=== PATIENT | female | born 1970 | race Caucasian/White ===

== ENCOUNTER 2019-11-08 10:42 | Emergency (ER) | payer MEDICARE, MEDICAID ==
[~2019-11-08] VITALS: Ht 160 cm; Wt 100.0 kg
[2019-11-08 11:02] VITALS: Ht 160 cm; Wt 100.0 kg
[2019-11-08] MEDS ORDERED: ABILIFY2 MG PO ×2 (11:05→11:10)
[2019-11-08] MEDS ORDERED: PEPCID AC20 MG PO ×2 (11:05→11:11)
[2019-11-08] MEDS ORDERED: ERENUMAB ×2 (11:05→11:10)
[2019-11-08] MEDS ORDERED: ATIVAN1 MG PO ×3 (11:06→15:41)
[2019-11-08] MEDS ORDERED: VISTARIL50 MG PO ×2 (11:06→11:11)
[2019-11-08] MEDS ORDERED: LINZESS290 MCG PO ×2 (11:06→11:12)
[2019-11-08] MEDS ORDERED: MORPHINE SULFAT30 M4 PO ×2 (11:07→11:12)
[2019-11-08] MEDS ORDERED: MOBIC7.5 MG PO ×2 (11:07→11:12)
[2019-11-08] MEDS ORDERED: ZOFRAN8 MG PO ×2 (11:07→11:13)
[2019-11-08] MEDS ORDERED: ZANAFLEX4 MG PO ×2 (11:08→11:13)
[2019-11-08] MEDS ORDERED: ZOLOFT100 MG PO ×2 (11:08→11:13)
[2019-11-08] MEDS ORDERED: CRESTOR20 MG PO ×2 (11:08→11:13)
[2019-11-08] MEDS ORDERED: IMITREX50 MG PO ×2 (11:08→11:13)
[2019-11-08] MEDS ORDERED: SYNTHROID50 MCG PO (11:11)
[2019-11-08 11:27] LABS: BASOPHILS 0.2 % (0-2); EOSINOPHILS 3.7 % (0-7); HEMATOCRIT 37.4 % (36.0-48.0); HEMOGLOBIN 12.7 g/dL (12-16); LYMPHOCYTES 46.9 % (15-50); MCH 28.6 pg (26.0-34.0); MCV 84.2 fL (80.0-100.0); MEAN PLATELET VOLUME 9.6 fL (7.4-10.4); MONOCYTES 11.8 % (2-11); NEUTROPHILS 37.4 % (40-80); RBC 4.44 10x6/uL (4.00-5.40); WBC 5.2 10x3/uL (4.8-10.8)
[2019-11-08 11:29] LABS: ANION GAP 14.1 mmol/L (8-16); CALCIUM 9.2 mg/dL (8.5-10.1); POTASSIUM - SERUM 4.1 mmol/L (3.5-5.1)
[2019-11-08 11:36] LABS: ALBUMIN 3.8 g/dL (3.4-5.0); BILIRUBIN - TOTAL 0.35 mg/dL (0.2-1.3); PROTEIN - SERUM 7.3 g/dL (6.4-8.2)
[2019-11-08 11:43] LABS: PLATELET COUNT 192 10x3/uL (130-400)
[2019-11-08 14:58] LABS: BACTERIA MODERATE /hpf (NEGATIVE); BILIRUBIN NEGATIVE (NEGATIVE); EPITHELIAL CELLS OCC /hpf (0-5); GLUCOSE NEGATIVE (NEGATIVE); KETONE NEGATIVE (NEGATIVE); NITRITE NEGATIVE (NEGATIVE); RED CELLS - URINE NONE SEEN /hpf (0-5); UROBILINOGEN NORMAL (NORMAL); WHITE CELLS - URINE 0-5 /hpf (NEGATIVE)
[2019-11-08 16:01] VITALS: BP 122/72
[2019-11-08 16:08] LABS: UDS - AMPHET NEGATIVE QUAL (NEGATIVE); UDS - BARB NEGATIVE QUAL (NEGATIVE); UDS - BENZO NEGATIVE QUAL (NEGATIVE); UDS - COCAINE NEGATIVE QUAL (NEGATIVE); UDS - OPIATE POSITIVE QUAL (NEGATIVE); UDS - PCP NEGATIVE QUAL (NEGATIVE); UDS - THC NEGATIVE QUAL (NEGATIVE)
== END 2019-11-08 16:18 | disposition home or self-care (01) ==
LOC: D.ER 10:42
PROVIDERS: Emergency Medicine
DX: R56.9 Unspecified convulsions (principal); R51 Headache; E07.9 Disorder of thyroid, unspecified; K21.9 Gastro-esophageal reflux disease without esophagitis

== ENCOUNTER 2019-12-28 20:42 | Inpatient (IN) | payer MEDICARE, MEDICAID ==
[~2019-12-28] VITALS: Ht 160 cm; Wt 112.2 kg
[~2019-12-28 20:42] MED LIST: ABILIFY2 MG PO; ATIVAN1 MG PO; CRESTOR20 MG PO; ERENUMAB; IMITREX50 MG PO; LINZESS290 MCG PO; MOBIC7.5 MG PO; MORPHINE SULFAT30 M4 PO; PEPCID AC20 MG PO; SYNTHROID50 MCG PO; VISTARIL50 MG PO; ZANAFLEX4 MG PO; ZOFRAN8 MG PO; ZOLOFT100 MG PO
--- NOTE | 2019-12-28 20:55 | NUR ---
PT DENIES CP. EDP NOTIFIED.
[2019-12-28 21:11] LABS: BASOPHILS 0.1 % (0-2); EOSINOPHILS 2.3 % (0-7); HEMATOCRIT 38.6 % (36.0-48.0); HEMOGLOBIN 12.7 g/dL (12-16); IMMATURE GRANULOCYTES 0.1 % (0-5); LYMPHOCYTES 53.3 % (15-50); MCH 28.3 pg (26.0-34.0); MCHC 32.9 g/dL (31.0-37.0); MEAN PLATELET VOLUME 10.2 fL (7.4-10.4); MONOCYTES 11.1 % (2-11); NEUTROPHILS 33.1 % (40-80); PLATELET COUNT 185 10x3/uL (130-400); RBC 4.49 10x6/uL (4.00-5.40); RDW 12.1 % (11.5-14.5); WBC 6.8 10x3/uL (4.8-10.8)
[2019-12-28 21:15] LABS: APTT 29.7 SECONDS (22.8-39.4); INR 0.97 (0.85-1.17); PROTIME 12.9 SECONDS (11.6-15.0)
[2019-12-28 21:19] LABS: CALC OSMOLALITY 282 mosm/kg (275-300); CALCIUM 8.8 mg/dL (8.5-10.1); CARBON DIOXIDE 26.4 mmol/L (21.0-32.0); CHLORIDE - SERUM 103 mmol/L (98-107); CREATININE - SERUM 1.3 mg/dL (0.6-1.3); GLUCOSE 125 mg/dL (74-106); POTASSIUM - SERUM 3.4 mmol/L (3.5-5.1); SODIUM 141 mmol/L (136-145); UREA NITROGEN 16 mg/dL (7-18); eGFR NON AFRICAN AMERICAN 46 mL/min (90-120)
[2019-12-28 21:35] LABS: ALBUMIN 3.7 g/dL (3.4-5.0); ALKALINE PHOSPHATASE 68 U/L (30-120); ALT (SGPT) 51 U/L (10-68); CKMB 0.2 U/L (0.0-3.6); CREATINE KINASE 95 UL (21-215); MAGNESIUM - SERUM 1.9 mg/dL (1.8-2.4); PROTEIN - SERUM 7.3 g/dL (6.4-8.2)
[2019-12-28 21:40] LABS: TROPONIN-I < 0.017 ng/mL (0.000-0.060)
[2019-12-28] MEDS ORDERED: PROAIR HFA8.5 G1 INH (22:58)
[2019-12-28] MEDS ORDERED: COLACE100 MG PO (22:59)
[2019-12-28] MEDS ORDERED: HYDROXYZINE HCL50 MG PO (23:01)
[2019-12-28] MEDS ORDERED: RANITIDINE HCL150 M1 PO (23:06)
[2019-12-29] VITALS: BP 156/91
--- NOTE | 2019-12-29 00:05 | NUR ---
HISTORY AND MED REC COMPLETE, DUE TO PTS HISTORY OF SEIZURES SIDE RAILS TO BED PADDED AND SUCTION SET UP AT BED SIDE.
--- NOTE | 2019-12-29 01:15 | NUR ---
CL ANSWERED, PT APPEARS TO BE HAVING SEIZURE, THIS NURSE STAYED WITH PT FOR SAFETY AND CALLED FOR CHARGE NURSE. HOB ELEVATED TO PREVENT ASPIRATION, REPOSITIONED IN BED USING PAD, PT ASSISTED BY LIFTING HER HEAD WHEN BEING PULLED UP, VITALS OBTAINED, VITALS STABLE. CHARGE NURSE CALLED RAPID RESPONSE. RAPID RESPONSE TEAM ARRIVED AND ASSESSED PT, NO POSTICTAL STATE NOTED. ERNESTINE BOND FROM ICU ASKED PT WHAT SHE TAKES FOR HER SEIZURES AT HOME, PT STATED LORAZEPAM, WHEN ASKED WHY SHE ISNT TAKING ANY ANTISEIZURE MEDICATIONS THE PT RESPONDED THAT THE DOCOTORS ARE STUPID AND WILL ONLY GIVEN HER ATIVAN. AFTER BEING ASSESSED BY R.R TEAM AND TILE SHADER NOTIFED, PT WILL REMIAN ON MED 2, SEIZURE PRECAUTIONS IN PLACE, RAILS PADDED, SUCTION SET UP, BED LOW, CL IN REACH.
[2019-12-29 02:31] LABS: BASOPHILS 0.2 % (0-2); EOSINOPHILS 2.1 % (0-7); HEMATOCRIT 35.3 % (36.0-48.0); HEMOGLOBIN 11.7 g/dL (12-16); LYMPHOCYTES 37.6 % (15-50); MCH 28.5 pg (26.0-34.0); MCHC 33.1 g/dL (31.0-37.0); MCV 85.9 fL (80.0-100.0); MEAN PLATELET VOLUME 9.7 fL (7.4-10.4); MONOCYTES 9.9 % (2-11); NEUTROPHILS 50.2 % (40-80); PLATELET COUNT 168 10x3/uL (130-400); RBC 4.11 10x6/uL (4.00-5.40); RDW 12.1 % (11.5-14.5); WBC 5.3 10x3/uL (4.8-10.8)
--- NOTE | 2019-12-29 02:46 | NUR ---
I have reviewed this patient and I concur with the Shift Assessment completed by the Licensed Practical Nurse today this shift.
[2019-12-29 02:55] LABS: ALKALINE PHOSPHATASE 62 U/L (30-120); ALT (SGPT) 44 U/L (10-68); BILIRUBIN - TOTAL 0.29 mg/dL (0.2-1.3); CARBON DIOXIDE 27.9 mmol/L (21.0-32.0); CHLORIDE - SERUM 106 mmol/L (98-107); CKMB 0.8 U/L (0.0-3.6); CREATINE KINASE 101 UL (21-215); POTASSIUM - SERUM 3.8 mmol/L (3.5-5.1); PRO BNP 91 pg/mL (0-125); PROTEIN - SERUM 6.6 g/dL (6.4-8.2); SODIUM 141 mmol/L (136-145)
[2019-12-29 03:04] VITALS: BMI 39.4
[2019-12-29 03:17] LABS: ALBUMIN 3.3 g/dL (3.4-5.0); CALC OSMOLALITY 283 mosm/kg (275-300); CALCIUM 8.7 mg/dL (8.5-10.1); CREATININE - SERUM 1.2 mg/dL (0.6-1.3); GLUCOSE 134 mg/dL (74-106); MAGNESIUM - SERUM 1.9 mg/dL (1.8-2.4); TROPONIN-I < 0.017 ng/mL (0.000-0.060); UREA NITROGEN 14 mg/dL (7-18); eGFR NON AFRICAN AMERICAN 50 mL/min (90-120)
[2019-12-29 04:00] VITALS: BP 150/66
[2019-12-29 04:36] LABS: BILIRUBIN NEGATIVE (NEGATIVE); GLUCOSE NEGATIVE (NEGATIVE); KETONE NEGATIVE (NEGATIVE); NITRITE NEGATIVE (NEGATIVE); UROBILINOGEN NORMAL (NORMAL)
[2019-12-29 05:01] LABS: UDS - AMPHET NEGATIVE QUAL (NEGATIVE); UDS - BARB NEGATIVE QUAL (NEGATIVE); UDS - BENZO NEGATIVE QUAL (NEGATIVE); UDS - COCAINE NEGATIVE QUAL (NEGATIVE); UDS - OPIATE POSITIVE QUAL (NEGATIVE); UDS - PCP NEGATIVE QUAL (NEGATIVE); UDS - THC NEGATIVE QUAL (NEGATIVE)
--- NOTE | 2019-12-29 05:57 | NUR ---
CL ANSWERED, PT IN BED, APPEARS TO BE HAVING A SEIZURE. INFORMED PT THAT I WAS AT HER BED SIDE AND LAID MY HAND ON HER CHEST. TRIED TO CHECK PT FOR INCONTINENCE, WHILE ACTIVELY HAVING INVOLUNTARY MOVEMENTS OF EXTREMITIES, PT THEN STATED " I DID NOT WET THE BED, IM HAVING A SEIZURE" PT ALSO C/O OF PAIN TO HER CHEST, OFFERED PT MORPHINE FOR "CHEST PAIN" MORPHINE 2 MG GIVEN.
--- NOTE | 2019-12-29 07:15 | NUR ---
RECEIVED PT IN BED EYES CLOSED RESP UNLABORED SKIN W/D COLOR WNL NAD NOTED
[2019-12-29 07:54] VITALS: Ht 160 cm; Wt 112.2 kg
[2019-12-29 09:05] LABS: CKMB 0.9 U/L (0.0-3.6); CREATINE KINASE 172 UL (21-215); TROPONIN-I < 0.017 ng/mL (0.000-0.060)
[2019-12-29 09:14] VITALS: BP 154/86
[2019-12-29 12:18] VITALS: BP 136/77
[2019-12-29 15:32] LABS: CKMB 0.9 U/L (0.0-3.6); CREATINE KINASE 128 UL (21-215); TROPONIN-I < 0.017 ng/mL (0.000-0.060)
[2019-12-29 17:15] VITALS: BP 164/69
--- NOTE | 2019-12-29 19:30 | NUR ---
REPORT RECIEVED AND INITIAL ROUNDS COMPLETED. PT RESTING IN BED. ALERT/ORIENTED. CALL LIGHT IN REACH.
[2019-12-29 21:21] VITALS: BP 120/75
--- NOTE | 2019-12-29 22:00 | NUR ---
PT REPORTS HAVING DIARRHEA X 4 EPISODES SINCE LUNCH TODAY. PT THEN GOT UP TO GO TO BATHROOM AND HAD EXPLOSIVE DIARRHEA SHE WALKED TO THE TOILET. CARE PROVIDED/CLEAN LINENS/PERSONAL CARE. HOUSEKEEPING TO ROOM TO CLEAN FLOORS AND BATHROOM. HELD BEDTIME COLACE D/T DIARRHEA AND GAVE MORPHINE/ZOFRAN IV FOR ABDOMINAL PAIN.
[2019-12-30] VITALS: BP 139/62
[2019-12-30 04:49] VITALS: BP 136/71
[2019-12-30 07:09] LABS: BASOPHILS 0.2 % (0-2); EOSINOPHILS 1.1 % (0-7); HEMATOCRIT 36.2 % (36.0-48.0); HEMOGLOBIN 11.8 g/dL (12-16); IMMATURE GRANULOCYTES 0.3 % (0-5); LYMPHOCYTES 35.6 % (15-50); MCH 28.2 pg (26.0-34.0); MCHC 32.6 g/dL (31.0-37.0); MCV 86.6 fL (80.0-100.0); MONOCYTES 9.5 % (2-11); NEUTROPHILS 53.3 % (40-80); RBC 4.18 10x6/uL (4.00-5.40); RDW 12.4 % (11.5-14.5); WBC 6.6 10x3/uL (4.8-10.8)
[2019-12-30 07:11] LABS: PLATELET COUNT 205 10x3/uL (130-400)
[2019-12-30 07:24] LABS: ANION GAP 12.6 mmol/L (8-16); CALCIUM 8.7 mg/dL (8.5-10.1); CARBON DIOXIDE 25.1 mmol/L (21.0-32.0); CREATININE - SERUM 0.9 mg/dL (0.6-1.3); PHOSPHOROUS 4.1 mg/dL (2.5-4.9); POTASSIUM - SERUM 3.7 mmol/L (3.5-5.1)
--- NOTE | 2019-12-30 09:11 | NUR ---
PT AWAKE AND ORIENTED AND ON THE CALL LIGHT WHEN I ENTERED THIS AM. REUQESTS ASSISTANCE THE BATHROOM, PT HARDLY TOUCHED MY HAND TO GET HERSELF OUT, WALKED TO THE BATHROOM AND BACK UNASSISTED. PT THEN HIT CL IN AGAIN, INFROMED TECH THAT SHE HAD A SMALL SEZIURE AND THOUGHT WE SHOULD KNOW. PT SHOWS NO SIGNS OF BEING POSTDICTAL. ADMINISTERED MORNING MEDICATIONS, PT STATES SHE TAKES MORE ZOLOFT THAN WE ARE GIVING HER. WILL CHECK. CALLED BACK INTO ROOM, PT STATES SHE TAKES PO MORPHINE AND SHE IS FRUSTRATED BY NOT RECIEVING ALL THE MEDICATIONS SHE SUPPOSED TO. WILL CHECK MEDRECK AND DISCUSS WITH DR. DYSON. CL IN REACH, SRX2
--- NOTE | 2019-12-30 10:31 | NUR ---
PT CALLED ME FOR ASSISTANCE TO THE BATHROOM. SHE DID NOT EVEN TOUCH ME TO GET OU OF BED. REQUIRES NO PHYSICAL ASSISTNACE, STANDBY ONLY
[2019-12-30 10:44] VITALS: BP 139/75
[2019-12-30 12:59] VITALS: BP 154/89
--- NOTE | 2019-12-30 15:31 | NUR ---
PT AWAKE ALERT AND OREINTED, COMPLAINS OF NEEDING PAIN MEDS D/T CHEST/GENERALIZED PAIN. ADMINSITERED PAIN MED PER MD ORDER. NO OTHER OCMPLAINT OR CONCERNS STATED AT THIS TI ME. CL INR EACH, SRX2.
[2019-12-30 16:00] VITALS: BP 132/79
--- NOTE | 2019-12-30 17:57 | NUR ---
I CONCUR WITH THIS STREET LIGHT CLEANER ASSESSMENT OF THIS PATIENT.
--- NOTE | 2019-12-30 19:50 | NUR ---
REPORT RECIEVED AND INITIAL ROUNDS COMPLETED. ALERT/ORIENTED. IVF NS @ 100ML/HR INFUSING TO RIGHT A/C. NONLABORED RESPIRATIONS ON ROOM AIR. NO C/O PAIN OR DISCOMFORT. TELEMETRY 64/SR. ELECTRICAL STIMULI UNITS X 2. PT CONVERSTING AT LENGTH ABOUT THE FACT THAT SHE NEEDS TO LIVE WITH SOMEONE DUE TO HER MANY HEALTH ISSUES AND SHE APPROACHED HER MOTHER AND HER MOTHER WAS NOT IN AGREEMENT. CPOC.
[2019-12-30 20:00] VITALS: BP 139/70
[2019-12-31] VITALS: BP 136/76
--- NOTE | 2019-12-31 02:57 | NUR ---
ASSISTED UP TO BATHROOM TO VOID. BACK TO BED. REQUESTED IV MORPHINE AND IV ZOFRAN HAS BEEN ADMINISTERED FOR PAIN TO BACK. CPOC.
[2019-12-31 04:00] VITALS: BP 136/72
[2019-12-31 06:54] LABS: BASOPHILS 0.1 % (0-2); EOSINOPHILS 0.8 % (0-7); HEMATOCRIT 34.9 % (36.0-48.0); HEMOGLOBIN 11.1 g/dL (12-16); IMMATURE GRANULOCYTES 0.3 % (0-5); LYMPHOCYTES 42.7 % (15-50); MCH 27.5 pg (26.0-34.0); MCHC 31.8 g/dL (31.0-37.0); MCV 86.6 fL (80.0-100.0); MEAN PLATELET VOLUME 9.8 fL (7.4-10.4); MONOCYTES 9.8 % (2-11); NEUTROPHILS 46.3 % (40-80); PLATELET COUNT 198 10x3/uL (130-400); RBC 4.03 10x6/uL (4.00-5.40); RDW 12.3 % (11.5-14.5); WBC 7.2 10x3/uL (4.8-10.8)
[2019-12-31 07:31] LABS: ANION GAP 12.7 mmol/L (8-16); CALCIUM 8.7 mg/dL (8.5-10.1); CARBON DIOXIDE 24.8 mmol/L (21.0-32.0); CREATININE - SERUM 0.9 mg/dL (0.6-1.3); PHOSPHOROUS 4.3 mg/dL (2.5-4.9); POTASSIUM - SERUM 3.5 mmol/L (3.5-5.1)
[2019-12-31 09:18] VITALS: BP 130/72
--- NOTE | 2019-12-31 09:51 | NUR ---
PT AWAKE AND ORIENTED, HAS HIT CALL LIGHT 4 TIMES SINCE 7 FOR MINIMAL ASSITANCE, MOSTLY TO BATHROOM. REQUIRES NO ASSITANCE TO ACTAULLY GET TO THE BATHROOM. CL IN REACH, SRX.2
[2019-12-31 12:56] VITALS: BP 176/96
--- NOTE | 2019-12-31 14:25 | NUR ---
PT ESCORTED OUT VIA WHEELCHAIR TO POV, SON DRIVING.
--- NOTE | 2019-12-31 19:06 | MORECARE ---
CASE MANAGEMENT DISCHARGE SUMMARY PATIENT: JOSI MCLEAN UNIT: [id number] ADM DATE: 12/28/19 AGE: 49 : [birth year] SEX: F ROOM/BED: D.2119 AUTHOR: LAYO HADDAD PHYSICIAN: REFERRING PHYSICIAN: VINITA ROBLERO MD DATE OF SERVICE: 12/31/19 Discharge Plan Patient Name: JOSI MCLEAN [facility] [facility] 1970 Planned Disposition: Home Anticipated Discharge Date: Discharge Date: 12/31/2019 Expected LOS: Initial Reviewer: [email or web address] Initial Review Date: 12/28/2019 Generated: 12/31/19 8:06 pm Patient Name: JOSI MCLEAN Page [phone] at 1906 All edits/amendments must be made on the electronic document DICTATION DATE: 12/31/191905 PASTEURISER OPERATOR: DENIS 12/31/191905 RPT#: [id number] DC DATE:12/31/19 STATUS: DIS IN [facility] [address] [place] [address] END OF REPORT
--- NOTE | 2019-12-31 19:13 | MORECARE ---
CASE MANAGEMENT DISCHARGE SUMMARY PATIENT: JOSI MCLEAN UNIT: [id number] ADM DATE: 12/28/19 AGE: 49 : [birth year] SEX: F ROOM/BED: D.2945 AUTHOR: CATIE,DOC PHYSICIAN: REFERRING PHYSICIAN: VINITA ROBLERO MD DATE OF SERVICE: 12/31/19 Discharge Plan Patient Name: JOSI MCLEAN Facility: [facility]:[place] : 1970 Planned Disposition: Home Anticipated Discharge Date: Discharge Date: 12/31/2019 Expected LOS: Initial Reviewer: [email or web address] Initial Review Date: 12/28/2019 Generated: 12/31/19 8:13 pm Comments DCP- Discharge Planning Updated by [email or web address]: Eve Lucero on 12/31/19 6:[address] Patient Name: JOSI MCLEAN Admission Status: ER Accout number: [id number] Admission Date: 12-28-2019 : 1970 Admission Diagnosis:SICK SINUS SYNDROME Attending: VINITA PAYAN Current LOS: 3 Anticipated DC Date: Planned Disposition: Home Primary Insurance: [facility] MEDIC[facility] SOLUTIONS Discharge Planning Comments: CM met with patient to complete initial dc planning assessment. CM educated patient on the CM role and verbal consent given by patient to complete assessment. Patient lives at home with family where she is independent with her care. At discharge patient plans to return home and feels this is a safe discharge. CM discussed availability of home health, rehab services, and medical equipment. patient will have family transport her home. Patient denied known discharge needs at this time. d/c IMM signed 12/31/19 CM will continue to follow and will assist as needed with dc plans/needs. Component Design Engineer: Eve Lucero DCPIA - Discharge Planning Initial Assessment Updated by [email or web address]: Eve Lucero on 12/31/19 7:06 pm * Is the patient Alert and Oriented? Yes * PCP MARILU * Pharmacy [facility] * Preadmission Environment Home with Family * ADLs Independent * List name and contact numbers for known caregivers / representatives who currently or will assist patient after discharge: GAMAL MYLES - SON - [phone] [facility] - [phone] * Verbal permission to speak to the caregivers and representatives has been obtained from the patient. Yes * Community resources currently utilized None * Additional services required to return to the preadmission environment? No * Can the patient safely return to the preadmission environment? Yes * Has this patient been hospitalized within the prior 30 days at any hospital? No Coverage Notice Reviewer: [email or web address] Bimal Lucero Notice Issued Date-Time: 12/31/2019 14:00 Notice Type: IM Discharge Notice Notice Delivered To: Patient Relationship to Patient: Self Human Resources Professional Name: Delivery Method: HAND - Hand Delivered Madeline Days: Prior Verbal Notification: Recipient Understood Notice: Yes Recipient Signature: Yes Med Rec Note Co-signed by Attending: Coverage Notice Comment: Last DP export: 12/31/19 6:06 pm Patient Name: JOSI MCLEAN Page [phone] at 1913 All edits/amendments must be made on the electronic document DICTATION DATE: 12/31/191912 OFFENSIVE COORDINATOR: DENIS 12/31/191912 RPT#: [id number] DC DATE:12/31/19 STATUS: DIS IN [facility] [address] [place] [address] END OF REPORT
== END 2019-12-31 14:25 | disposition home or self-care (01) | DRG 310 ==
LOC: D.ER 20:42 → D.M2 21:47
PROVIDERS: Family Medicine; ADMIT Family Medicine Adult Medicine; ATTEND Family Medicine Adult Medicine
DX: I49.5 Sick sinus syndrome (principal); I10 Essential (primary) hypertension; E03.9 Hypothyroidism, unspecified; F32.9 Major depressive disorder, single episode, unspecified; E78.5 Hyperlipidemia, unspecified; G40.909 Epilepsy, unspecified, not intractable, without status epilepticus; G89.4 Chronic pain syndrome

== ENCOUNTER 2020-01-19 15:39 | Inpatient (IN) | payer MEDICARE, MEDICAID ==
[~2020-01-19] VITALS: Ht 160 cm; Wt 120.5 kg
[~2020-01-19 15:39] MED LIST changes: +COLACE100 MG PO; +HYDROXYZINE HCL50 MG PO; +PROAIR HFA8.5 G1 INH; +RANITIDINE HCL150 M1 PO
--- NOTE | 2020-01-19 15:57 | NUR ---
RECEIVED PT FROM ADMISSIONS. PT IS AAO AND UP AD LASHAWN. CALL LIGHT W/I REACH. FALL PRECAUTIONS IN PLACE. QUICKSTART, HISTORY, AND MED REQ COMPLETE. NO S/S OF DISTRESS NOTED. PT DENIES ANY NEEDS AT THIS TIME. WILL CTM.
[2020-01-19 16:38] LABS: BASOPHILS 0.2 % (0-2); EOSINOPHILS 1.6 % (0-7); HEMATOCRIT 39.6 % (36.0-48.0); HEMOGLOBIN 12.9 g/dL (12-16); IMMATURE GRANULOCYTES 0.3 % (0-5); LYMPHOCYTES 41.2 % (15-50); MCH 28.3 pg (26.0-34.0); MCHC 32.6 g/dL (31.0-37.0); MCV 86.8 fL (80.0-100.0); MEAN PLATELET VOLUME 9.9 fL (7.4-10.4); MONOCYTES 11.3 % (2-11); NEUTROPHILS 45.4 % (40-80); PLATELET COUNT 207 10x3/uL (130-400); RBC 4.56 10x6/uL (4.00-5.40); RDW 12.4 % (11.5-14.5); WBC 6.4 10x3/uL (4.8-10.8)
[2020-01-19 17:03] VITALS: BP 124/86
[2020-01-19 17:17] LABS: ALBUMIN 3.9 g/dL (3.4-5.0); ALKALINE PHOSPHATASE 67 U/L (30-120); ALT (SGPT) 8 U/L (10-68); BILIRUBIN - TOTAL 0.45 mg/dL (0.2-1.3); CALC OSMOLALITY 276 mosm/kg (275-300); CALCIUM 8.8 mg/dL (8.5-10.1); CARBON DIOXIDE 26.2 mmol/L (21.0-32.0); CHLORIDE - SERUM 102 mmol/L (98-107); CKMB 0.3 U/L (0.0-3.6); CREATINE KINASE 96 UL (21-215); GLUCOSE 101 mg/dL (74-106); MAGNESIUM - SERUM 1.7 mg/dL (1.8-2.4); POTASSIUM - SERUM 3.9 mmol/L (3.5-5.1); PROTEIN - SERUM 7.1 g/dL (6.4-8.2); SODIUM 139 mmol/L (136-145); UREA NITROGEN 9 mg/dL (7-18)
[2020-01-19 17:47] LABS: CREATININE - SERUM 1.1 mg/dL (0.6-1.3); TROPONIN-I 0.058 ng/mL (0.000-0.060); eGFR NON AFRICAN AMERICAN 56 mL/min (90-120)
[2020-01-19 18:12] VITALS: BMI 47.0
--- NOTE | 2020-01-19 18:28 | NUR ---
ASSESSMENT COMPLETE PT AAOX4 RESP UNLABORED SKIN W/D COLOR WNL DENIES ANY CHEST PAIN AT THIS TIME
--- NOTE | 2020-01-19 19:28 | NUR ---
RECEIVED UP IN BED WITH EYES OPEN AND TV ON. ALERT AND ORIENTED X4. UP AD LASHAWN TO B/R. IV TO RT AC WITH NS AT 50CC/HR. TELEMETRY IN PLACE. DENIES ANY NEEDS AT THIS TIME.
[2020-01-19 20:30] VITALS: BP 129/78
[2020-01-19 22:02] LABS: CKMB 0.8 U/L (0.0-3.6); CREATINE KINASE 117 UL (21-215); TROPONIN-I < 0.017 ng/mL (0.000-0.060)
[2020-01-20 00:30] VITALS: BP 149/79
[2020-01-20 04:30] VITALS: BP 129/79
[2020-01-20 05:25] LABS: BASOPHILS 0.2 % (0-2); EOSINOPHILS 1.6 % (0-7); HEMATOCRIT 36.3 % (36.0-48.0); HEMOGLOBIN 11.6 g/dL (12-16); IMMATURE GRANULOCYTES 0.2 % (0-5); LYMPHOCYTES 43.7 % (15-50); MCH 27.8 pg (26.0-34.0); MCV 87.1 fL (80.0-100.0); MEAN PLATELET VOLUME 9.7 fL (7.4-10.4); MONOCYTES 11.4 % (2-11); NEUTROPHILS 42.9 % (40-80); PLATELET COUNT 181 10x3/uL (130-400); RBC 4.17 10x6/uL (4.00-5.40); RDW 12.3 % (11.5-14.5); WBC 4.9 10x3/uL (4.8-10.8)
[2020-01-20 05:54] LABS: CALC OSMOLALITY 279 mosm/kg (275-300); CALCIUM 8.9 mg/dL (8.5-10.1); CARBON DIOXIDE 29.7 mmol/L (21.0-32.0); CHLORIDE - SERUM 105 mmol/L (98-107); CKMB 0.7 U/L (0.0-3.6); CREATINE KINASE 102 UL (21-215); GLUCOSE 106 mg/dL (74-106); MAGNESIUM - SERUM 1.9 mg/dL (1.8-2.4); PHOSPHOROUS 4.1 mg/dL (2.5-4.9); POTASSIUM - SERUM 3.8 mmol/L (3.5-5.1); SODIUM 141 mmol/L (136-145); UREA NITROGEN 9 mg/dL (7-18); eGFR NON AFRICAN AMERICAN 62 mL/min (90-120)
[2020-01-20 05:59] LABS: TROPONIN-I < 0.017 ng/mL (0.000-0.060)
[2020-01-20 08:29] VITALS: BP 132/78
--- NOTE | 2020-01-20 08:41 | NUR ---
AM MEDS GIVEN AT THIS TIME. PT IN BED, A/O X4, RESP EVEN AND NONLABORED ON RA. RT AC INFUSING NS AT 50CC/HR. PT RATES PAIN 02/06. PT DENIES ANY NEEDS AT THIS TIME. CALL LIGHT IN REACH, NAD NOTED,W ILL CONTNUE TO MONITOR.
[2020-01-20 11:46] VITALS: Ht 160 cm; Wt 120.5 kg
--- NOTE | 2020-01-20 12:39 | NUR ---
2MG OF MORPHINE GIVEN FOR PAIN LEVEL OF 7/10. PT DENIES ANY OTHER NEEDS AT THIS TIME. CALL LIGHT IN REACH, NAD NOTED, WILL CONITNUE TO MONITOR.
[2020-01-20 13:11] LABS: BILIRUBIN NEGATIVE (NEGATIVE); GLUCOSE NEGATIVE (NEGATIVE); KETONE NEGATIVE (NEGATIVE); NITRITE NEGATIVE (NEGATIVE); UROBILINOGEN NORMAL (NORMAL)
[2020-01-20 13:23] LABS: UDS - AMPHET NEGATIVE QUAL (NEGATIVE); UDS - BARB NEGATIVE QUAL (NEGATIVE); UDS - BENZO NEGATIVE QUAL (NEGATIVE); UDS - COCAINE NEGATIVE QUAL (NEGATIVE); UDS - OPIATE POSITIVE QUAL (NEGATIVE); UDS - PCP NEGATIVE QUAL (NEGATIVE); UDS - THC NEGATIVE QUAL (NEGATIVE)
[2020-01-20 13:56] VITALS: BP 118/61
--- NOTE | 2020-01-20 16:36 | NUR ---
2MG OF MORPHINE GIVEN FOR PAIN LEVEL OF 8/10. PT DENIES ANY OTHER NEEDS AT THIS TIME. CALL LIGHT IN REACH, NAD NOTED, WILL CONTINUE TO MONITOR.
[2020-01-20 18:25] VITALS: BP 134/88
--- NOTE | 2020-01-20 19:58 | NUR ---
INITIAL ROUNDS AND ASSESSMENT COMPLETED. NO DISTRESS. CALL LIGHT IN REACH. CPOC
[2020-01-20 20:30] VITALS: BP 151/92
--- NOTE | 2020-01-20 21:00 | NUR ---
BEDTIME MEDS GIVEN. PT C/O PAIN ALL OVER. MEDICATED WITH REQUESTED MORPHINE 2MG SIVP. IVF NS @ 50ML/HR INFUSING TO RIGHT A/C. CPOC.
[2020-01-21 00:30] VITALS: BP 133/74
--- NOTE | 2020-01-21 02:04 | NUR ---
PT RESTING IN BED WITH NO DISTRESS. CALL LIGHT IN REACH. CPOC.
[2020-01-21 04:30] VITALS: BP 128/72
--- NOTE | 2020-01-21 05:33 | NUR ---
AM MEDS GIVEN, PLUS REQUESTED IV MORPHINE FOR PAIN/DISCOMFORT 03/08. MADE COMMENT THAT SHE HAD NOT HAD ANY PAIN MEDS ALL NIGHT. REMINDED PT THAT SHE HAD IV MORPHINE AT BEDTIME MED ROUNDS. IVF INFUSING. CPOC.
[2020-01-21 06:14] LABS: BASOPHILS 0.2 % (0-2); EOSINOPHILS 1.4 % (0-7); HEMATOCRIT 37.1 % (36.0-48.0); LYMPHOCYTES 46.5 % (15-50); MCH 28.2 pg (26.0-34.0); MCHC 32.3 g/dL (31.0-37.0); MCV 87.1 fL (80.0-100.0); MEAN PLATELET VOLUME 10.1 fL (7.4-10.4); MONOCYTES 10.1 % (2-11); NEUTROPHILS 41.8 % (40-80); PLATELET COUNT 215 10x3/uL (130-400); RBC 4.26 10x6/uL (4.00-5.40); RDW 12.7 % (11.5-14.5); WBC 5.7 10x3/uL (4.8-10.8)
[2020-01-21 07:00] LABS: ANION GAP 12.7 mmol/L (8-16); CALCIUM 8.7 mg/dL (8.5-10.1); CREATININE - SERUM 0.9 mg/dL (0.6-1.3); MAGNESIUM - SERUM 1.9 mg/dL (1.8-2.4); PHOSPHOROUS 4.7 mg/dL (2.5-4.9); POTASSIUM - SERUM 3.7 mmol/L (3.5-5.1)
--- NOTE | 2020-01-21 07:59 | NUR ---
650MG OF TYLENOL FOR PAIN LEVEL OF 7/10 TO HEAD. MONITOR SHOWING SR WITH RATE OF 86. PT A/O X4, RESP EVEN AND NONLABORED ON RA. RT AC INFUSING NS AT 50CC/HR. PT DENIES ANY OTHER NEEDS AT THIS TIME. CALL LIGHT IN REACH, NAD NOTED, WILL CONTINUE TO MONITOR.
[2020-01-21 08:48] VITALS: BP 155/96
--- NOTE | 2020-01-21 09:25 | NUR ---
AM MEDS GIVEN AT THIS TIME. ALSO GAVE 2MG OF MORPHINE FOR PAIN LEVEL OF 6/10. PT DENIES ANY OTHER NEEDS AT THIS TIME. CALL LIGHT IN REACH, NAD NOTED, WILL CONTINUE TO MONITOR.
--- NOTE | 2020-01-21 09:56 | EC ---
PATIENT:JOSI MCLEAN DATE OF SERVICE: 01/19/20 SEX: F MEDICAL RECORD: [id number] DATE OF : [birth year] LOCATION:D.M2 D.212 AGE OF PATIENT: 49 ADMISSION DATE: 01/19/20 REFERRING PHYSICIAN: INTERPRETING PHYSICIAN: FERNANDO AKHTAR MD ECHOCARDIOGRAM REPORT ECHO CHARGES 4 ECHO COMPLETE Date: 01/20/20 CLINICAL DIAGNOSIS: CHEST PAIN ECHOCARDIOGRAPHIC MEASUREMENTS (adult normal given) AC root (d.<3.7cm) 3.6 cm LV Septum d (<1.2 cm> 1.3 cm Valve Excursion 2.0 cm LV Septum (systole) 1.5 cm Left Atria (s.<4.0cm> 3.6 cm LVPW d(<1.2cm) 1.6 cm RV (d.<2.3cm) 3.5 cm LVPW (sytole) 1.7 cm LV diastole(<5.6CM) 5.6 cm MV E-F(>70mm/sec) cm LV systole 4.3 cm LVOT Diameter 2.0 cm MV exc.(>10mm) 1.6 cm Est.ejection fraction (50-75%) % DOPPLER: LVIT cm/sec A 69.0 cm/sec E 47.0 cm/sec LA cm/sec RVSP 15 mmHg LVOT 111 cm/sec AOP1/2T m/s Asc. Ao 114 cm/sec RVOT cm/sec RA cm/sec PA 103 cm/sec AV Gradient Peak 5.17 mmHg AV Mean 2.45 mmHg AV Area 3.4 cm MV Gradient Peak 3.17 mmHg MV Mean 1.13 mmHg MV Area cm COMMENTS: Water Softener Servicer And Installer: 2 [place] Mobile Phone Salesperson: 4 Dr. Akhtar TAPE# PACS Pericardial Effusion N DATE OF SERVICE: Left ventricle shows normal LV systolic function to mildly hyperdynamic LV systolic function without wall motion abnormalities, ejection fraction of 55% to 60%. There is evidence of mild left ventricular hypertrophy. Left atrium is normal size, structure and function. Aortic valve is normal structure and function. ECHOCARDIOGRAM REPORT [id number] JOSI MCLEAN Mitral valve shows normal structure and function. Tricuspid valve has normal structure and function. Normal RVSP. Right ventricle is mildly dilated with normal structure and function. Right atrium is normal. Pulmonic valve is normal. IMPRESSION: The patient has evidence of hypertensive heart disease with preserved left ventricular systolic function, evidence of diastolic dysfunction. TRANSINT:[id number] Voice Confirmation ID: [id number] DOCUMENT ID: [id number] FERNANDO AKHTAR MD at 0956 CC: [id number] DICTATION DATE: 01/20/20 1257 FISCAL ANALYST: 01/20/20 1534 ADM IN [place] [id number] [place] [address]
[2020-01-21 12:59] VITALS: BP 147/82
--- NOTE | 2020-01-21 13:58 | NUR ---
2MG OF MORPHINE GIVEN FOR PAIN LEVEL OF 9/10. PT UP TO CHAIR, DENIES ANY OTHER NEEDS AT THIS TIME. CALL LIGHT IN REACH, NAD NOTED,W ILL CONTINUE TO MONITOR.
[2020-01-21 18:04] VITALS: BP 130/71
--- NOTE | 2020-01-21 18:05 | NUR ---
GAVE 2MG OF MORPHINE FOR PAIN LEVEL OF 9/10. ALSO GAVE 4MG OF ZOFRAN FOR PAIN NAUSEA.
[2020-01-21 20:00] VITALS: BP 139/70
--- NOTE | 2020-01-21 20:00 | NUR ---
INITIAL ROUNDS AND ASSESSMENT COMPLETED. IVF INFUSING. NONLABORED RESPIRATIONS ON ROOM AIR. CPOC. CALL LIGHT IN REACH.
--- NOTE | 2020-01-21 20:00 | NUR ---
INITIAL ROUNDS AND ASSESSMENT COMPLETED. NO DISTRESS. NONLABORED RESPIRATIONS. SEE SHIFT ASSESSMENT. CPOC. CALL LIGHT IN REACH.
--- NOTE | 2020-01-21 21:35 | NUR ---
BEDTIME MEDS GIVEN. IV MORPHINE FOR GENERALIZED PAIN.
[2020-01-22 04:00] VITALS: BP 131/77
[2020-01-22 06:54] LABS: BASOPHILS 0.2 % (0-2); EOSINOPHILS 2.2 % (0-7); HEMATOCRIT 36.5 % (36.0-48.0); HEMOGLOBIN 11.8 g/dL (12-16); IMMATURE GRANULOCYTES 0.2 % (0-5); LYMPHOCYTES 39.5 % (15-50); MCHC 32.3 g/dL (31.0-37.0); MCV 86.5 fL (80.0-100.0); MEAN PLATELET VOLUME 10.2 fL (7.4-10.4); MONOCYTES 10.8 % (2-11); NEUTROPHILS 47.1 % (40-80); PLATELET COUNT 210 10x3/uL (130-400); RBC 4.22 10x6/uL (4.00-5.40); RDW 12.5 % (11.5-14.5); WBC 6.3 10x3/uL (4.8-10.8)
[2020-01-22 07:03] LABS: CALC OSMOLALITY 276 mosm/kg (275-300); CALCIUM 8.6 mg/dL (8.5-10.1); CARBON DIOXIDE 28.4 mmol/L (21.0-32.0); CHLORIDE - SERUM 106 mmol/L (98-107); CREATININE - SERUM 0.8 mg/dL (0.6-1.3); GLUCOSE 102 mg/dL (74-106); MAGNESIUM - SERUM 2.1 mg/dL (1.8-2.4); PHOSPHOROUS 4.7 mg/dL (2.5-4.9); POTASSIUM - SERUM 3.7 mmol/L (3.5-5.1); SODIUM 140 mmol/L (136-145); UREA NITROGEN 8 mg/dL (7-18); eGFR NON AFRICAN AMERICAN 80 mL/min (90-120)
--- NOTE | 2020-01-22 09:06 | NUR ---
AM MEDS GIVEN AT THIS TIME. ALSO GAVE 2MG OF MORPHINE FOR PAIN LEVEL OF 7/10. PT NPO UNTIL SEEN BY CARDIOLOGY FOR POSSIBLE PACEMAKER. PT DENIES ANY OTHER NEEDS AT THIS TIME. CALL LIGHT IN REACH, NAD NOTED, WILL CONTINUE TO MONITOR.
[2020-01-22 10:37] VITALS: BP 143/84
--- NOTE | 2020-01-22 11:38 | NUR ---
SHOWER AND COMPLETE LINEN CHANGE AT THIS TIME.
--- NOTE | 2020-01-22 13:05 | NUR ---
OK TO D/C FROM CARDIOLOGY STANDPOINT. F/U WITH HEALTH OUTREACH WORKER.
--- NOTE | 2020-01-22 13:18 | NUR ---
PROVIDED VERBAL AND WRITTEN DISCHARGE TEACHING TO PT WHO VERBALIZED UNDERSTANDING REGARING TEACHING. D/C RT AC IV WITH CATHETER TIP INTACT. HEART MONITOR REMOVED AND TAKEN TO MARK UP DESIGNER. PT WAITING ON RIDE,W ARIANA NOTIFY NURSE WHEN READY FOR WHEELCHAIR.
--- NOTE | 2020-01-22 13:51 | MORECARE ---
CASE MANAGEMENT DISCHARGE SUMMARY PATIENT: JOSI MCLEAN UNIT: [id number] ADM DATE: 01/19/20 AGE: 49 : 68 SEX: F ROOM/BED: D.2549 AUTHOR: CATIE,DOC PHYSICIAN: REFERRING PHYSICIAN: KARLA NORTH MD DATE OF SERVICE: 01/22/20 Discharge Plan Patient Name: JOSI MCLEAN Facility: [facility]:[place] : 1970 Planned Disposition: Home Anticipated Discharge Date: Discharge Date: Expected LOS: 0 Initial Reviewer: [email or web address] Initial Review Date: 01/19/2020 Generated: 01/22/20 2:51 pm Comments DCP- Discharge Planning Updated by [email or web address]: Sendy Esposito on 01/22/20 12:[address] Patient Name: JOSI MCLEAN Admission Status: Urgent Accout number: [id number] Admission Date: 01-19-2020 : 1970 Admission Diagnosis: Attending: KARLA NORTH Current LOS: 3 Anticipated DC Date: Planned Disposition: Home Primary Insurance: [facility] MEDIC[facility] SOLUTIONS CM met with patient to complete initial dc planning assessment. CM educated patient on the CM role and verbal consent given by patient to complete assessment. CM verified patient's address, phone number, and emergency contact phone numbers. Patient lives at home independently. At discharge patient plans to return home and feels this is a safe discharge. CM discussed availability of home health, rehab services, and medical equipment. Patient denied known discharge needs at this time. Transportation provider at discharge will be Jay (son) . DC IMM delivered, explained, signed by the patient, and placed in his chart. Signed form also left with patient. CM will continue to follow and will assist as needed with dc plans/needs. Nurse Transplant: Sendy Esposito MSN,RN,CM Coverage Notice Reviewer: [email or web address] - Sendy Esposito Notice Issued Date-Time: 01/22/2020 13:40 Notice Type: IM Discharge Notice Notice Delivered To: Patient Relationship to Patient: Forest Ecology Professor Name: Delivery Method: HAND - Hand Delivered Madeline Days: Prior Verbal Notification: Recipient Understood Notice: Yes Recipient Signature: Yes Med Rec Note Co-signed by Attending: Coverage Notice Comment: DC IMM delivered, explained, signed by the patient, and placed in his chart. Signed form also left with patient. Patient Name: JOSI MCLEAN Page [phone] at 1351 All edits/amendments must be made on the electronic document DICTATION DATE: 01/22/20 1351 [place]ADEMARK AFFIXER: DENIS 01/22/20 1351 RPT#: [id number] DC DATE: STATUS: ADM IN [facility] [address] [place] [address] END OF REPORT
--- NOTE | 2020-01-22 13:57 | NUR ---
PT LEFT UNIT VIA WHEELCHAIR, WITH ALL BELONGINGS, NAD NOTED.
== END 2020-01-22 13:57 | disposition home or self-care (01) | DRG 310 ==
LOC: D.M2 15:39
PROVIDERS: Family Medicine; ADMIT Internal Medicine Nephrology; ATTEND Internal Medicine Nephrology
DX: I49.5 Sick sinus syndrome (principal); I20.9 Angina pectoris, unspecified; I10 Essential (primary) hypertension; E03.9 Hypothyroidism, unspecified; G89.4 Chronic pain syndrome; M79.7 Fibromyalgia

== ENCOUNTER 2020-01-30 10:59 | Outpatient (CLI) | payer MEDICARE, MEDICAID ==
[~2020-01-30] VITALS: Ht 160 cm; Wt 99.5 kg
--- NOTE | ~2020-01-30 | HEMODYNAMI ---
PATIENT:JOSI MCLEAN MEDICAL RECORD: [id number] : 68 LOCATION:[facility] ADMISSION DATE: 01/30/20 Generatedon:01/30/202014:53 Patient name: JOSI MCELAN Patient #: [id number] SSN: [id number] : 1970 Date of study: 01/30/2020 Page: Of Hemodynamic Procedure Report Patient Data Patient Demographics Procedure consent was obtained First Name: JOSI Gender: Female Last Name: VINAY : 1970 Patient #: [id number] Age: 49 year(s) Race: Unknown SSN: [id number] Additional ID: [id number] Contact details [address]: [address] [place] [address] State: [place] City: [place] Zip code: [address] Past Medical History Allergies Allergen Reaction Date Comments Reported Other allergy 01/30/2020 DEXAMETHASONE Admission Admission Data Admission Date: 01/30/2020 Admission Time: 10:59 Arrival Date: 01/30/2020 Arrival Time: 0:00 Height (in.): 24.8 BSA: 1.03 (m2) Height (cm.): 63 BMI: 257.14 (kg/m2) Weight (lbs.): 225 Weight (kg.): 102.06 Lab Results Lab Result Date: 01/30/2020 Lab Result Time: 0:00 CBC Name Units Result Min Max Hematocrit % 38.9 *-(----)-- 42 54 Hemoglobin g/dl 12.5 *-(----)-- 13.5 17.5 Procedure Procedure Types Cath Procedure Diagnostic Procedure PPM/ICD PPM Dual Implant Sedation Charges Moderate Sedation up to 30 minutes Procedure Description Procedure Date Procedure Date: 01/30/2020 Procedure Start Time: 14:19 Procedure End Time: 14:51 Procedure Staff Name Function Grabiel Davison MD Performing Physician Janet Khan RT Monitor Lyudmila Andrews RN Nurse Van Sood MD Assisting physician Purnima Montilla RT Scrub Indication Sick Sinus Syndrome Procedure Data Cath Procedure Fluoroscopy Diagnostic fluoroscopy Total fluoroscopy Time: 1.8 time: 1.8 min min Diagnostic fluoroscopy Total fluoroscopy dose: dose: 1126.17 mGy 1126.17 mGy Estimated blood loss: 10 ml Procedure Complications No complications Procedure Medications Medication Administration Route Dosage 0.9% NaCl I.V. 100 ml/hr Oxygen etCO2 Nasal cannula 2 l/min Lidocaine 1% added to field 20 Ancef (1Gm/50ml NS) I.V.P.B 1 g Ancef Irrigation Topical 1 g (1gm/500ml NS) Versed Fentanyl I.V. 50 mcg Versed I.V. 2 mg Fentanyl I.V. 50 mcg Versed I.V. 2 mg Fentanyl I.V. 50 mcg Versed I.V. 1 mg Fentanyl I.V. 50 mcg Hemodynamics Rest BSA: 1.03 (m2) HGB: 12.5 (g/dl) O2 Consumption: Estimated: 94.7 (ml/min) O2 Cons umption indexed: Estimated:91.94 (ml/min/m) Heart Rate: 54 (bpm) Snapshots Pre Cath Intra NCS Post Cath Vital Signs Time Heart Resp SPO2 etCO2 NIBP (mmHg) Rhythm Pain Status Sedation Rate (ipm) (%) (mmHg) Level (bpm) 13:39:18 56 13 99 40.7 127/84(107) SB 0 (11) , No 10(A) pain 13:43:38 56 16 98 30.1 138/56(60) SB 0 (11) , No 10(A) pain 13:47:46 52 15 98 42.1 122/75(96) SB 0 (11) , No 10(A) pain 13:51:58 50 10 98 42.8 122/69(80) SB 0 (11) , No 10(A) pain 13:56:10 51 11 97 43.6 129/74(95) SB 0 (11) , No 10(A) pain 14:01:09 55 22 100 32.3 Measuring SB 0 (11) , No 10(A) pain 14:01:19 58 21 100 27 127/74(103) SB 0 (11) , No 10(A) pain 14:05:37 54 12 100 39.1 112/63(87) SB 0 (11) , No 10(A) pain 14:09:47 53 10 100 38.3 109/66(80) SB 0 (11) , No 10(A) pain 14:13:57 52 10 100 39.1 113/67(80) SB 0 (11) , No 10(A) pain 14:18:56 52 17 99 39.8 Measuring SB 0 (11) , No 10(A) pain 14:19:08 51 10 99 39.8 126/73(96) SB 0 (11) , No 10(A) pain 14:23:25 54 13 100 42.9 111/69(82) SB 5 (11) , 10(A) Very distressing 14:28:23 55 15 94 38.3 Measuring SB 5 (11) , 10(A) Very distressing 14:28:58 53 10 96 39.1 93/55(71) SB 5 (11) , 10(A) Very distressing 14:33:00 54 17 98 42.1 91/71(81) SB 5 (11) , 10(A) Very distressing 14:36:56 79 18 96 41.3 102/83(92) Paced 5 (11) , 10(A) Very distressing 14:41:55 89 18 97 46.6 Measuring Paced 0 (11) , No 10(A) pain 14:41:57 89 19 98 46.6 112/60(90) Paced 0 (11) , No 10(A) pain 14:46:09 60 17 97 45.1 101/48(75) Paced 0 (11) , No 10(A) pain 14:50:16 60 10 91 46.6 110/63(91) Paced 0 (11) , No 10(A) pain Medications Time Medication Route Dose Verified Delivered Reason Notes Effectiv eness by by 13:45:11 0.9% NaCl I.V. 100 Grabiel Lyudmila used for ml/hr Laney Darryl procedure MD SINHA 13:45:18 Oxygen etCO2 2 Grabiel Lyudmila used for Nasal l/min Lane[facility] Darryl procedure cannula MD SINHA 13:45:31 Lidocaine added 20ml Grabiel Fernandeza for local 1% to vial Laney Darryl anesthetic field x 2 MD SINHA 13:45:52 Ancef I.V.P.B 1 g Grabiel Lyudmila used for (1Gm/50ml Laney Darryl procedure NS) MD SINHA 13:46:00 Ancef Topical 1 g Grabiel Lyudmila used for Irrigation [place] Darryl procedure (1gm/500ml MD SINHA NS) 14:17:05 Versed Grabiel Lyudmila Fully aw mello @ [facility] Darryl 14:25:27 MD SINHA 14:17:11 Fentanyl I.V. 50 Grabiel Lyudmila for Fully aw mello @ [facility] sedation 14:25:29 RN 14:21:19 Versed I.V. 2 mg Grabiel Lyudmila for Fully aw mello @ [facility] sedation 14:25:33 RN 14:21:20 Fentanyl I.V. 50 Grabiel Lyudmila [facility] MD SINHA 14:25:09 Versed I.V. 2 mg Grabiel Lyudmila for Fully aw mello @ [facility] sedation 14:30:01 MD SINHA 14:25:12 Fentanyl I.V. 50 Grabiel Lyudmila for Fully aw mello @ [facility] sedation 14:29:51 MD SINHA 14:29:06 Versed I.V. 1 mg Grabiel Lyudmila for [facility] sedation MD SINHA 14:29:15 Fentanyl I.V. 50 Grabiel Lyudmila for [facility] sedation MD SINHAhouse superintendent Log Time Note 13:13:28 Informed consent obtained and on chart 13:15:04 Indication : Sick Sinus Syndrome 13:15:18 Arrival Date: 01/30/2020 12:00:00 AM 13:15:31 Patient Height : 24.8 inches 13:15:42 Patient Weight : 225 lbs 13:16:57 Procedure Status PPM/ Gen Change/ Lead Revision/ Temp. 13:17:04 Time tracking: Regular hours (M-F 7:00 - 5:00) 13:22:23 [employer] insurance service representative KIN PATRICIA present for procedure. 13:23:45 Purnima Montilla RT(R) sent for patient. Start room use. 13:23:56 Plan of Care:Hemodynamics will remain stable., Cardiac rhythm will remain stable., Comfort level will be maintained., Respiratory function will remain adequate., Patient/ family verbilizes understanding of procedure., Procedure tolerated without complication., Recovers from procedure without complications.. 13:28:31 Patient received from Pre/Post Procedure Room to [facility] 3 Alert and oriented. Tansferred to table in Supine position. 13:28:34 Warm blankets applied, and patricia hugger turned on for patient comfort. 13:28:35 Correct patient and procedure confirmed by team. 13:28:36 ECG and BP/O2 sat monitors applied to patient. 13:38:22 Vital chart was started 13:38:24 Baseline sample Acquired. 13:38:59 Rhythm: sinus rhythm 13:39:02 Full Disclosure recording started 13:39:03 - 13:39:10 H&P Date Dictated: 01/30/2020 H&P Addendum completed by physician on day of procedure. (MUST COMPLETE FOR ALL OUTPATIENTS), New H&P dictated by physician.. 13:39:12 Pre-procedure instructions explained to patient. 13:39:13 Pre-op teaching completed and patient verbalized understanding. 13:39:16 Family in patients room. 13:39:18 Patient NPO since Midnight. 13:45:11 0.9% NaCl 100 ml/hr I.V. was administered by Lyudmila Andrews RN; used for procedure; Verbal order read back and verified. 13:45:18 Oxygen 2 l/min etCO2 Nasal cannula was administered by Lyudmila Andrews RN ; used for procedure; Verbal order read back and verified. 13:45:31 Lidocaine 1% 20ml vial x 2 added to field was administered by Lyudmila Andrews RN; for local anesthetic; Verbal order read back and verified. 13:45:52 Ancef (1Gm/50ml NS) 1 g I.V.P.B was administered by Lyudmila Andrews RN; used for procedure; Verbal order read back and verified. 13:46:00 Ancef Irrigation (1gm/500ml NS) 1 g Topical was administered by Lyudmila Andrews RN; used for procedure; Verbal order read back and verified. 13:47:11 Patient allergic to Other allergyDEXAMETHASONE 13:48:51 Was the patient premedicated? Yes 13:49:00 Is patient on blood thinner?No 13:49:03 Patient diabetic? No. 13:49:06 ----Pre-sedation anethsthesia assessment.---- 13:49:47 Previous problem with sedation/anesthesia? No ? 13:49:50 Snore? Yes 13:49:56 Snore? Yes 13:49:59 Sleep apnea? No 13:50:10 Deviated septum? Unknown 13:50:13 Opens mouth fully? Yes 13:50:18 Sticks out tongue? Yes 13:50:42 Airway obstruction? No ? 13:50:46 Dentures? No ? 13:51:13 IV patent on arrival in right antecubital with 0.9% NaCl at [facility]. 13:51:28 Left chest area was prepped with chlora-prep and draped in sterile fashion 13:51:31 Alarms reviewed by R. N. 13:51:31 Sharps counted by scrub and verified by R.N. 13:51:37 Physician paged 13:52:04 Lab Result : Hemoglobin 12.5 g/dl 13:52:04 Lab Result : Hematocrit 38.9 % 13:52:16 Use device set KEVIN PPM 13:52:18 2-0 Ticron Multipack ([id number]) opened to sterile field. 13:52:19 3-0 Vicryl Single Pack [id number] opened to sterile field. 13:52:20 5-0 Monocryl PS2 [id number] opened to sterile field. 13:52:21 Cautery Tip Homemaker Companion opened to sterile field. 13:52:22 Cautery Pushbutton Pencil opened to sterile field. 13:52:23 Mepilex Dressing ([id number]) opened to sterile field. 13:52:52 Medtronic 4074-52 PPM Lead opened to sterile field. 13:52:56 Medtronic 4574-45 PPM Lead opened to sterile field. 13:53:[address] Generator [id number] opened to sterile field. 13:53:43 Immobilizer Large opened to sterile field. 13:54:17 Pre sharps counted by scrub and verified by RN: Sutures: 7; Sponges: 5; Stick needles: 2; Skin needles: 2; Blade: 1; Cautery: 1 13:54:28 Grounding pad site Left thigh. 13:54:32 Grounding pad site free from injury. 14:02:01 Physician responded to page. 14:16:06 Physician arrived 14:16:08 --------ALL STOP TIME OUT------ 14:16:09 Final Timeout: patient, procedure, and site verified with staff and physician. All members of the team are in agreement. 14:16:15 Left chest site verified by team. 14:16:31 Fire Safety Assessment: A--An alcohol-based skin anteseptic being used preoperatively., B--The operative or invasive procedure is being performed above the xiphoid process or in the oropharynx., C--Open oxygen or nitrous oxide is being used., E--There are other possible contributors. 14:16:38 Physical assessment completed. ASA score P 1 - A normal healthy patient as per Grabiel Davison MD. 14:16:48 Sedation plan: IV Moderate Sedation Medication:Versed, Fentanyl 14:17:05 Versed was administered by Lyudmila Andrews RN; ; Verbal order read back and verified. 14:17:11 Fentanyl 50 mcg I.V. was administered by Lyudmila Andrews RN; for sedation ; Verbal order read back and verified. 14:19:43 Procedure started. 14:19:52 Lidocaine 1% was administered to left subclavicular area by Van johnson MD . 14:20:28 Incision made to left subclavicular area. 14:21:19 Versed 2 mg I.V. was administered by Lyudmila Andrews RN; for sedation; Verbal order read back and verified. 14:21:20 Fentanyl 50 mcg I.V. was administered by Lyudmila Andrews RN; for sedation ; Verbal order read back and verified. 14:22:44 Generator pocket made/opened. 14:25:03 Left subclavian vein accessed with 7Fr Peel Away Sheath. 14:25:09 Versed 2 mg I.V. was administered by Lyudmila Andrews RN; for sedation; Verbal order read back and verified. 14:25:12 Fentanyl 50 mcg I.V. was administered by Lyudmila Andrews RN; for sedation ; Verbal order read back and verified. 14:25:27 Effectiveness of Versed delivered @ 14:17:05 is: Fully awake 14:25:29 Effectiveness of Fentanyl delivered @ 14:17:11 is: Fully awake 14:25:33 Effectiveness of Versed delivered @ 14:21:19 is: Fully awake 14:25:58 Left subclavian vein accessed with 7Fr Peel Away Sheath. 14:27:28 Ventricular lead inserted and advanced. 14:27:32 Atrial lead inserted and advanced. 14:29:06 Versed 1 mg I.V. was administered by Lyudmila Andrews RN; for sedation; Verbal order read back and verified. 14::15 Fentanyl 50 mcg I.V. was administered by Lyudmila Andrews RN; for sedation ; Verbal order read back and verified. 14:29:51 Effectiveness of Fentanyl delivered @ 14:25:12 is: Fully awake 14:30:01 Effectiveness of Versed delivered @ 14:25:09 is: Fully awake 14:31:37 Atrial lead positioned. 14:31:43 Atrial lead tested. 14:31:48 Ventricular lead positioned. 14:31:53 Ventricular lead tested. 14:33:03 Peel-a-way sheath was split and removed. 14:33:04 Peel-a-way sheath was split and removed. 14:35:02 PPM Dual was attached to lead(s) and inserted into pocket. 14:35:20 Atrial lead attachment was completed with 2-0 ticron. 14:35:27 Ventricular lead attachment was completed with 2-0 ticron. 14:35:37 PPM Dual was inserted subcutaneously to left chest. 14:37:53 Device pocket was irrigated with Ancef. 14:38:30 Generator was sutured in place with 2-0 ticron. 14:41:19 Subcutaneous closure was completed with 3-0 vicryl plus. 14:41:50 Skin closure was completed with 5-0 monocryl. 14:42:26 Parameters-- Generator: Mode: AAIRDDDR. Lower Rate: 60bpm. Upper Rate: 120bpm. 14:43:26 Parameters--Ventricular P/R Wave: 5.1mV. Current: 0.4mA; Threshold: 0.5V; Impedence: 1350OHMS. 14:44:52 Parameters--Atrial P/R Wave: 2.3mV. Current: 0.4mA; Threshold: 0.2V; Impedence: 514OHMS. 14:46:46 Lt Chest incision was dressed with Mepilex dressing. 14:47:46 Post sharps counted by scrub and verified by RN: Sutures: 7; Sponges: 5 ; Stick needles: 2; Skin needles: 2; Blade: 1; Cautery: 1 14:48:21 Procedure ended.(Physican Out) 14:48:40 Fluoroscopy time 01.80 minutes. 14:48:52 Fluoroscopy dose: 1126.17 mGy 14:48:52 Flurop Dose total: 1126.17 14:49:01 Dose Area Product 1126.17 mGy/cm. 14:49:05 Sharps counted by scrub and verified by R.N. 14:49:19 Post Chest area:stable 14:49:32 Post-procedure physical assessment completed. ASA score P 1 - A normal healthy patient as per Grabiel Davison MD. 14:49:38 Post procedure rhythm: paced 14:49:51 Estimated blood loss: 10 ml 14:49:53 Post procedure instruction explained to patient.Patient verbalizes understanding. 14:49:54 Patient needs reinforcement of post procedure teaching. 14:50:23 Procedure type changed to Cath procedure, Diagnostic procedure, PPM/ICD , PPM Dual Implant, Sedation Charges, Moderate Sedation up to 30 minutes 14:50:26 Procedure and supply charges have been captured, reviewed, submitted an d are correct. 14:51:05 Procedure Complication : No complications 14:51:09 Vital chart was stopped 14:51:15 Operative report dictated upon procedure completion. 14:51:16 See physician's report for complete and final results. 14:51:19 Report given to Pre/Post Procedure Room. 14:51:24 Patient transfered to Pre/Post Procedure Room with Stretcher. 14:51:27 Procedure ended. 14:51:27 Full Disclosure recording stopped 14:51:30 End room use (Document Last) Device Usage Item Name Manufacture Quantity Catalog Hospital Part Current Minima l Lot# / Number Charge Number Stock Stock Serial# Code 2-0 Ticron Ethicon 0 [id number] 512011 19798 [id number] 5 Multipack ([id number]) 3-0 Vicryl Ethicon 1 [id number] 105677 093136 569658 5 Single Pack [id number] 5-0 Monocryl Ethicon 1 Y495G 023334 018530 929434 5 PS2 Y495G Cautery Tip Microtek 1 [id number] 924584 200086 438389 5 [employer] Cautery Microtek 1 [id number] 270109 13588 582257 5 Pushbutton [employer] Pencil Mepilex Cardinal 1 [id number] 187083 521295 309532 5 Dressing Health ([id number]) Medtronic Medtronic 1 4074-52 162156 291936 135968 5 [id number] 4074-52 PPM 04-25-2020 Lead Medtronic Medtronic 1 4574-45 292454 123341 589529 5 [id number] 4574-45 PPM 08-09-2021 Lead Medtronic Medtronic 1 [id number] 525495 [id number] 198975 5 [id number] CONNOR XT 04-26-2021 Generator [id number] Immobilizer Cardinal 1 [id number] [id number] 000622 [id number] 5 Large [facility] Signature Audit [place] Stage Time Signature Unsigned Intra-Procedure 01/30/2020 Janet 2:51:55 PM Erin RT(R) (CV) Intra-Procedure 01/30/2020 Lyudmila Andrews 2:52:50 PM RN Intra-Procedure 01/30/2020 Grabiel Garcia 2:53:19 PM [id number] [place] [address]
[2020-01-30] MEDS ORDERED: LEVOTHYROXINE75 MCG PO (11:22)
[2020-01-30] MEDS ORDERED: BACLOFEN10 MG PO (11:25)
[2020-01-30] MEDS ORDERED: SUMATRIPTAN SUC25 MG PO (11:25)
[2020-01-30] MEDS ORDERED: HYDROXYZINE HCL50 MG PO (11:26)
[2020-01-30 11:44] VITALS: BP 120/75; Ht 160 cm; Wt 99.5 kg
[2020-01-30 13:13] LABS: HEMATOCRIT 38.9 % (36.0-48.0); HEMOGLOBIN 12.5 g/dL (12-16); MCH 28.1 pg (26.0-34.0); MCHC 32.1 g/dL (31.0-37.0); MCV 87.4 fL (80.0-100.0); MEAN PLATELET VOLUME 10.5 fL (7.4-10.4); RBC 4.45 10x6/uL (4.00-5.40); RDW 12.4 % (11.5-14.5); WBC 5.2 10x3/uL (4.8-10.8)
[2020-01-30 13:29] LABS: ANION GAP 10.1 mmol/L (8-16); CALCIUM 9.2 mg/dL (8.5-10.1); CARBON DIOXIDE 29.8 mmol/L (21.0-32.0); POTASSIUM - SERUM 3.9 mmol/L (3.5-5.1)
[2020-01-30 13:41] LABS: APTT 29.8 SECONDS (22.8-39.4); INR 0.98 (0.85-1.17)
--- NOTE | 2020-01-30 14:55 | NUR ---
PATIENT ARRIVED TO ROOM 5 AFTER PROCEDURE, VSS ON ROOM AIR. LEFT CHEST DRESSING IS CDI, NO S/S OF BLEEDING OR HEMATOMA. NO C/O PAIN, NUMBNESS, OR TINGLING.
--- NOTE | 2020-01-30 15:10 | NUR ---
PATIENT INTERMITTENTLY RESTING. VSS ON ROOM AIR. LEFT CHEST DRESSING IS CDI, NO S/S OF BLEEDING OR SWELLING. NO C/O PAIN, NUMBNESS, OR TINGLING. NO N/V. PATIENT TOLERATING PO FLUIDS.
--- NOTE | 2020-01-30 15:40 | NUR ---
PATIENT AWAKE, GIVEN HAMLET CRACKERS AND PUDDING PER REQUEST, NO N/V. VSS ON ROOM AIR. LEFT CHEST DRESSING IS CDI, NO S/S OF BLEEDING OR HEMATOMA. NO C/O PAIN, NUMBNESS, OR TINGLING. SON PRESENT AT BEDSIDE.
--- NOTE | 2020-01-30 16:10 | NUR ---
PATIENT AWAKE, RESTING IN BED, HEAD OF BED ELEVATED AT 70 DEGREES. LEFT CHEST DRESSING IS CDI, NO S/S OF BLEEDING OR HEMATOMA. NO C/O PAIN, NUMBNESS, OR TINGLING. NO N/V. SON PRESENT AT BEDSIDE.
--- NOTE | 2020-01-30 16:40 | NUR ---
WRITTEN AND VERBAL DISHCARGE EDUCATION AND MEDICATION INSTRUCTIONS GIVEN TO PATIENT AND SON, BOTH VOICE UNDERSTANDING. VSS ON ROOM AIR. LEFT CHEST DRESSING IS CDI, NO S/S OF BLEEDING OR SWELLING. NO C/O PAIN, NUMBNESS, OR TINGLING. NO N/V. SKIN IS WARM AND PINK.
--- NOTE | 2020-01-30 17:05 | NUR ---
PATIENT DISCONNECTED FROM MONITORS TO GET DRESSED. PERIPHERAL IV REMOVED WITH CATHLON INTACT. PATIENT TRANSPORTED VIA WHEELCHAIR TO CAR WITH SON DRIVING, ALL BELONGINGS WITH PATIENT.
--- NOTE | 2020-01-31 11:14 | OP ---
PATIENT NAME: SHAYLA PARIKH MEDICAL RECORD: [id number] :68 LOCATION:D.CAT ADMISSION DATE: SURGEON: TAMI RAMIREZ MD DATE OF OPERATION: 01/30/2020 SURGEON: Van Sood MD (JJ) INDICATION: Sick sinus syndrome with antoni escape rhythms with the rates down the 28. DESCRIPTION OF PROCEDURE: After the left subclavian was cannulated via modified Seldinger technique via Dr. Sood, first under fluoroscopic guidance, I placed the RV lead in the RV apex without difficulty. After adequate thresholds and R waves were obtained, I then passed the right atrial lead in the right atrial appendage without difficulty. After adequate P waves and thresholds were obtained, the leads were attached to appropriate poles of the generator and the pocket was closed via Dr. Sood. IMPRESSION: Successful lead portion of permanent pacemaker placement on Shayla Parikh. ESTIMATED BLOOD LOSS: Minimal. COMPLICATIONS: None. DISPOSITION: To the floor, stable. TRANSINT:[id number] Voice Confirmation ID: [id number] DOCUMENT ID: [id number] TAMI RAMIREZ MD at 1114 CC: [id number] DICTATION DATE: 01/30/20 1604 BELT DRESSER: 01/31/20 0248 DEP CLI 01/30/20 [id number] [place] [address]
== END 2020-01-30 17:05 ==
LOC: D.CATH 10:59
PROVIDERS: ATTEND Internal Medicine Interventional Cardiology
DX: I49.5 Sick sinus syndrome (principal); I10 Essential (primary) hypertension; E78.5 Hyperlipidemia, unspecified

== ENCOUNTER 2020-03-07 16:57 | Outpatient (CLI) | payer MEDICARE, MEDICAID ==
[2020-01-30 11:44] VITALS: BMI 38.8
[~2020-03-07 16:57] MED LIST changes: +BACLOFEN10 MG PO; +LEVOTHYROXINE75 MCG PO; +SUMATRIPTAN SUC25 MG PO
== END 2020-03-07 16:58 ==
LOC: D.MAMMO 16:57
PROVIDERS: ATTEND Family Medicine
DX: N63.20 Unspecified lump in the left breast, unspecified quadrant (principal)